=== PATIENT | female | born 1960 | race Caucasian/White ===

== ENCOUNTER 2017-07-17 09:19 | Inpatient (IN) | payer OTHER ==
[~2017-07-17] VITALS: Ht 165.1 cm; Wt 97.2 kg
[2017-07-17] MEDS ORDERED: METFORMIN HCL1000 MG PO (11:29)
[2017-07-17 12:31] LABS: CARBON DIOXIDE 32.9 mmol/L (21-32); CHLORIDE SERUM 102 mmol/L (98-107); CREATININE SERUM 0.5 mg/dL (0.6-1.0); GFR1 > 60 mL/min; GLUCOSE SERUM 216 mg/dL (74-106); POTASSIUM SERUM 4.6 mmol/L (3.5-5.1); SODIUM SERUM 139 mmol/L (136-145)
[2017-07-17 12:34] LABS: MAGNESIUM 2.1 mg/dL (1.8-2.4); PHOSPHOROUS 3.3 mg/dL (2.5-4.9)
[2017-07-17 12:36] LABS: ALBUMIN 3.5 g/dL (3.4-5.0); ALKALINE PHOSPHATASE 65 U/L (46-116); ALT/SGPT 23 U/L (14-59); AST/SGOT 18 U/L (15-37); BILIRUBIN TOTAL 0.39 mg/dL (0.20-1.00); TOTAL PROTEIN, SERUM 7.4 g/dL (6.4-8.2)
[2017-07-17 12:47] LABS: T3 TOTAL 1.09 ng/mL
[2017-07-17 12:48] VITALS: BP 138/71
[2017-07-17 12:52] LABS: FREE T4 1.06 ng/dL (0.76-1.46); FREE THYROXINE INDEX 2.8 ug/dL (1.4-4.5); T4(THYROXINE) 7.7 ug/dL (4.7-13.3)
[2017-07-17 13:17] LABS: BASOPHIL % 0.3 % (0-2); PLATELET COUNT 302 x10^3mcL (130-400); RED CELL DISTRIBUTION WIDTH 14.3 % (11.5-14.5)
[2017-07-17 16:27] VITALS: BP 151/70
[2017-07-17 17:05] LABS: UA SPECIFIC GRAVITY >=1.030 (1.005-1.035); microscopic required? YES; urine erythrocyte TRACE (NEGATIVE)
[2017-07-17 17:13] LABS: AMPHETAMINE QUAL UR NONE DETECTED (NEG <=1000)
[2017-07-17 21:23] VITALS: BP 143/70
[2017-07-18 05:58] VITALS: BP 152/78
[2017-07-18 06:17] LABS: BASOPHIL % 0.4 % (0-2); PLATELET COUNT 244 x10^3mcL (130-400); RED CELL DISTRIBUTION WIDTH 14.4 % (11.5-14.5)
[2017-07-18 06:30] LABS: CALCIUM 8.2 mg/dL (8.5-10.1); CHLORIDE SERUM 104 mmol/L (98-107); CREATININE SERUM 0.5 mg/dL (0.6-1.0); GFR1 > 60 mL/min; GLUCOSE SERUM 241 mg/dL (74-106); MAGNESIUM 1.8 mg/dL (1.8-2.4); PHOSPHOROUS 3.4 mg/dL (2.5-4.9); POTASSIUM SERUM 4.1 mmol/L (3.5-5.1); SODIUM SERUM 141 mmol/L (136-145)
[2017-07-18 10:04] VITALS: BP 177/87
[2017-07-18 10:30] VITALS: BP 153/85
[2017-07-18 17:00] VITALS: BP 146/76
[2017-07-18 22:07] VITALS: BP 139/72
[2017-07-19 05:51] LABS: BASOPHIL % 0.3 % (0-2); PLATELET COUNT 251 x10^3mcL (130-400); RED CELL DISTRIBUTION WIDTH 14.1 % (11.5-14.5)
[2017-07-19 06:14] LABS: CALCIUM 8.3 mg/dL (8.5-10.1); CARBON DIOXIDE 29.2 mmol/L (21-32); CHLORIDE SERUM 105 mmol/L (98-107); CREATININE SERUM 0.5 mg/dL (0.6-1.0); GFR1 > 60 mL/min; GLUCOSE SERUM 249 mg/dL (74-106); POTASSIUM SERUM 4.5 mmol/L (3.5-5.1); SODIUM SERUM 139 mmol/L (136-145)
[2017-07-19 06:36] VITALS: BP 155/68
[2017-07-19 10:49] VITALS: BP 161/71
[2017-07-19 17:58] VITALS: BP 155/65
[2017-07-19 21:35] VITALS: BP 139/66
[2017-07-20 05:10] VITALS: BP 157/67
[2017-07-20 06:01] LABS: BASOPHIL % 0.4 % (0-2); PLATELET COUNT 218 x10^3mcL (130-400)
[2017-07-20 06:23] LABS: CALCIUM 8.2 mg/dL (8.5-10.1); CARBON DIOXIDE 30.1 mmol/L (21-32); CHLORIDE SERUM 105 mmol/L (98-107); CREATININE SERUM 0.4 mg/dL (0.6-1.0); GFR1 > 60 mL/min; GLUCOSE SERUM 182 mg/dL (74-106); POTASSIUM SERUM 4.1 mmol/L (3.5-5.1); SODIUM SERUM 141 mmol/L (136-145)
[2017-07-20 06:37] LABS: RED CELL DISTRIBUTION WIDTH 14.7 % (11.5-14.5)
[2017-07-20 08:46] VITALS: BP 1150/66
[2017-07-20 09:50] VITALS: BP 150/66
[2017-07-20] MEDS ORDERED: ZES10 PO (10:42)
[2017-07-20] MEDS ORDERED: COL100 PO (10:44)
[2017-07-20] MEDS ORDERED: LAC PO (10:45)
[2017-07-20] MEDS ORDERED: LEVAQUIN750 MG PO (10:58)
[2017-07-20] MEDS ORDERED: APAP/HYDROCODON1 T13 PO (10:59)
[2017-07-20] MEDS ORDERED: MOT600 PO (11:10)
== END 2017-07-20 15:54 | disposition home or self-care (01) | DRG 515 ==
LOC: ED 09:19 → DU 11:10 → MU 11:10 → DU 12:38 → MU 07-18 07:46
PROVIDERS: Neuromusculoskeletal Medicine, Sports Medicine; ADMIT Family Medicine
PROC: 0QSD04Z Reposition Right Patella with Internal Fixation Device, Open Approach (ICD-10-PCS; principal; 2017-07-18 13:00)
DX: S82.041A Displaced comminuted fracture of right patella, initial encounter for closed fracture (principal); N17.0 Acute kidney failure with tubular necrosis; N39.0 Urinary tract infection, site not specified; B96.20 Unspecified Escherichia coli [E. coli] as the cause of diseases classified elsewhere; F32.9 Major depressive disorder, single episode, unspecified; E11.65 Type 2 diabetes mellitus with hyperglycemia; D64.9 Anemia, unspecified; E66.9 Obesity, unspecified; Z68.34 Body mass index [BMI] 34.0-34.9, adult; Z79.84 Long term (current) use of oral hypoglycemic drugs; Z16.24 Resistance to multiple antibiotics; W01.0XXA Fall on same level from slipping, tripping and stumbling without subsequent striking against object, initial encounter; Y92.213 High school as the place of occurrence of the external cause; Y99.0 Civilian activity done for income or pay
CPT/HCPCS: 76001; 82962; 83880; 84439; 94150; 97110-GP; 97116-GP; 97530-GP; C1713; J0690; J0696; J1170; J1644; J1815; J2175; J2250; J2270; J2405; J2704; J3010; J3490; J7030; Q0092